=== PATIENT | male | born 1960 | race Caucasian/White ===

== ENCOUNTER → 2024-12-02 | Outpatient (CLI) | payer MEDICARE ==
--- NOTE | 2024-12-02 12:41 | NM ---
EXAMINATION TYPE: NM stress lexiscan cardiolite DATE OF EXAM: 12/02/2024 COMPARISON: NONE CLINICAL INDICATION: Male, 64 years old with history of R06.09 DYSPNEA; history of hypertension and d iabetes and hypercholesterolemia TECHNIQUE: After the intravenous administration of 9.52 mCi Tc 99m Sestamibi - Cardiolite resting SP ECT images acquired 45 minutes post injection. The patient received 0.4mg Lexiscan, 26.1 mCi Tc 99m Sestamibi - Stress images obtained [address] injection FINDINGS: Review of stress and rest SPECT images demonstrates no distinct perfusion abnormality. Gated analysi s shows normal wall motion with an estimated left ventricular ejection fraction of 66 %. IMPRESSION: No scintigraphic evidence for reversible ischemia. [facility], , 12/02/2024 12:38 PM
--- NOTE | 2024-12-02 13:14 | CA ---
Lexiscan Nuclear Stress Test Report Name: aJylon Barry Exam Date: 12/02/2024 10:50 Exam Location: [facility] Stress Ht (in): 71 Wt (lb): 151 BSA: 1.87 Ordering Phys: Wolfgang Carson MD Referring Phys: Wlofgang Carson MD Technologist: Remi Winston Age: 64 Gender: M : 1960 Procedure CPT: Indications: R06.09 Dyspnea ICD-10 Codes: Patient History: CHEST PAIN, DIFFICULTY IN BREATHING, HTN, DIABETIC, HYPERCHOLESTEROLEMIA Medications: Meds past 24 hrs: Pretest Chest Pain: STRESS TEST Lexiscan Protocol Exercise Duration (min:sec): 02:[address] Depressions (mm): Angina Score: Cook Score: Resting HR (bpm): Peak HR (bpm): 92 Resting BP (mmHg): 127 / 59 Peak BP (mmHg): 131 / 62 MPHR: 154 Target HR: 131 % MPHR: 60 METS: 1.0 Total Dose: Peak Dose: Atropine: Double Product: 39464 BP Response: Stress Termination: INFUSION COMPLETE Stress Symptoms: NAUSEA Stress Summary: ECG ANALYSIS Resting ECG: Stress ECG: CONCLUSIONS RESTING EKG: [Normal sinus rhythm, normal EKG] Patient recieved IV infusion of Lexiscan 0.4mg and at peak infusion STRESS EKG showed: [No significant ST-T wave changes diagnostic for ischemia by ST segment analysis] ARRYTHMIAS: Occasional PVCs. No sustained arrhythmias CONCLUSION: 1. Normal hemodynamic and clinical response to Lexiscan infusion. 2. Non-ischemic EKG response to lexiscan infusion Please refer to the nuclear imaging portion of this stress test for complete interpretation of the study.RESTING EKG: [Normal sinus rhythm, normal EKG] Patient recieved IV infusion of Lexiscan 0.4mg and at peak infusion. Patient experienced nausea during Lexiscan infusion which resolved spontaneously with resting. No reported chest pain or shortness of breath. STRESS EKG showed: [No significant ST-T wave changes diagnostic for ischemia by ST segment analysis] ARRYTHMIAS: Occasional PVCs. No sustained arrhythmias CONCLUSION: 1. Normal hemodynamic and clinical response to Lexiscan infusion. 2. Non-ischemic EKG response to lexiscan infusion Please refer to the nuclear imaging portion of this stress test for complete interpretation of the study. Dr Rasheed Luna (Electronically Signed) Final Date: 02 December 2024 13:14
== END | disposition home or self-care (01) ==
LOC: RADNMMAIN 08:28
PROVIDERS: ATTEND Emergency Medicine
DX: R06.09 Other forms of dyspnea (principal); I10 Essential (primary) hypertension; E11.9 Type 2 diabetes mellitus without complications; E78.00 Pure hypercholesterolemia, unspecified; R11.0 Nausea
CPT/HCPCS: 93017; 78452; A9500

== ENCOUNTER → 2025-03-21 | Outpatient (CLI) | payer MEDICARE ==
[2025-03-21 20:35] LABS: ALT 19 U/L (10-49); AST 23 U/L (14-35); Albumin 4.6 g/dL (3.8-4.9); Albumin/Globulin Ratio 1.39 Ratio (1.60-3.17); Alkaline Phosphatase 125 U/L (41-126); Bilirubin, Conjugated <0.20 mg/dL (0.20-0.40); Bilirubin,Unconjugated >0.10 mg/dL (0.20-1.00); Globulin 3.3 g/dL (1.6-3.3); Total Bilirubin 0.3 mg/dL (0.3-1.2); Total Protein 7.9 g/dL (6.2-8.2)
== END | disposition home or self-care (01) ==
LOC: LABWHC1 14:49
PROVIDERS: ATTEND Student in an Organized Health Care Education/Training Program
DX: B35.1 Tinea unguium (principal)
CPT/HCPCS: 36415; 80076